=== PATIENT | female | born 1970 | race Caucasian/White ===

== ENCOUNTER 2017-09-07 20:29 | Emergency (ER) | payer BC, OTHER ==
[~2017-09-07] VITALS: Ht 154.9 cm; Wt 69.4 kg
--- NOTE | 2017-09-07 20:39 | ED.ADGEN ---
Adult General Chief Complaint Chief Complaint ".. The screen door caught my Lt heel.. ".. and ripped it open..." HPI HPI Patient is a 46 year old female who presents with above hx and complaints of 8 cm laceration area of Lt Achilles . Pt. has exposure to the Achilles . Has not cut the tendon. Pt. denies any hx of immunosuppression. No travel. Is exposed to children. Pt. does not remember her last tetanus. Distal neurovascular intact. Flap of degloved skin is avascular in the distal 1/2 fo the flap. Pt. does smoke. Review of Systems Review of Systems Constitutional: Denies fever or chills [] Eyes: Denies change in visual acuity, redness, or eye pain [] HENT: Denies nasal congestion or sore throat [] Respiratory: Denies cough or shortness of breath [] Cardiovascular: No additional information not addressed in HPI [] GI: Denies abdominal pain, nausea, vomiting, bloody stools or diarrhea [] : Denies dysuria or hematuria [] Musculoskeletal: Denies back pain or joint pain [] Integument: Denies rash or skin lesions [] complaints of pain and laceration Achilles tendon area. Neurologic: Denies headache, focal weakness or sensory changes [] Endocrine: Denies polyuria or polydipsia [] All other systems were reviewed and found to be within normal limits, except as documented in this note. Family History Family History Non-contributory Current Medications Current Medications Current Medications Medications (Trade) Dose Ordered Sig/Zen Start Time Stop Time Status Last Admin Dose Admin Bupivacaine HCl (Sensorcaine Mpf 0.5%) 30 ml 1X ONCE 09/07/17 21:15 09/07/17 21:16 DC Bupivacaine HCl (Sensorcaine Pf 0.75%) 10 ml ONCE ONCE 09/07/17 21:15 09/07/17 21:16 DC 09/07/17 21:38 10 ML Bupivacaine HCl (Sensorcaine-Mpf 0.25%) 10 ml ONCE ONCE 09/07/17 21:15 09/07/17 21:16 DC 09/07/17 21:38 10 ML Ceftriaxone Sodium (Rocephin Im) 1 gm 1X ONCE 09/07/17 21:15 09/07/17 21:16 DC 09/07/17 21:40 1 GM Lidocaine HCl 20 ml STK-MED ONCE 09/07/17 21:06 09/07/17 21:07 DC Oxycodone/ Acetaminophen (Percocet 5/325) 1 tab 1X ONCE 09/07/17 21:15 09/07/17 21:16 DC 09/07/17 21:39 1 TAB Tetanus/ Diphtheria Toxoids Adsorbed (Tenivac Vial) 0.5 ml ONCE ONCE 09/07/17 22:00 09/07/17 22:01 DC 09/07/17 21:51 0.5 ML Allergies Allergies Allergies Coded Allergies Type Severity Reaction Last Updated Verified Penicillins Allergy Intermediate 09/07/17 Yes Physical Exam Physical Exam Constitutional: in acute distress, non-toxic appearance. [] HENT: Normocephalic, atraumatic, bilateral external ears normal, oropharynx moist, no oral exudates, nose normal. [] Eyes: PERRLA, EOMI, conjunctiva normal, no discharge. [] Neck: Normal range of motion, no tenderness, supple, no stridor. [] Cardiovascular:Heart rate regular rhythm, no murmur [] Lungs & Thorax: Bilateral breath sounds equal at apex with scattered wheezies on auscultation [] Abdomen: Bowel sounds normal, soft, no tenderness, no masses, no pulsatile masses. [] Skin: Warm, dry, no erythema, no rash. [] Back: No tenderness, no CVA tenderness. [] Extremities: No tenderness, no cyanosis, no clubbing, ROM intact, no edema. []- except findings in Lt heel laceration as per HPI Neurologic: Alert and oriented X 3, normal motor function, normal sensory function, no focal deficits noted. [] Psychologic: Affect normal, judgement normal, mood normal. [] Current Patient Data Vital Signs Vital Signs Date Time Temp Pulse Resp B/P (MAP) Pulse Ox O2 Delivery O2 Flow Rate FiO2 09/07/17 21:38 91 18 162/85 (110) 98 Room Air 09/07/17 21:08 98.1 EKG EKG [] Radiology/Procedures Radiology/Procedures [] Course & Med Decision Making Course & Med Decision Making Pertinent Labs and Imaging studies reviewed. (See chart for details) Procedure Note- Laceration repair- Laceration edge cleaned with Betadine. Injected edge of laceration. Re-irrigated laceration in ROM with Normal saline. Scrubbed laceration with gauze and saline.. Closed flap with 5 internal Vicryl sutures - 3-0. Then approximated edge of laceration with 3- 0 Vicryl x 4.- mattress sutures. Then closed laceration with 12 -x 4-0 Prolene. Bactracin applied with dressing. Keep dressing clean and dry. Polysporin 4 x day when dressing removed in 3 day or if removed sooner. White cotton socks only. Remove the Blue sutures in 10 days. May leave the black Vicryl sutures.. Tylenol and Ibuprofen for pain. Keflex 500 three times a day. Return if any concerns. Follow up with primary [] Final Impression Final Impression 1. Laceration Lt. Heel - 8 cm[] Dragmaricruz Disclaimer Dragon Disclaimer This electronic medical record was generated, in whole or in part, using a voice recognition dictation system. JACOB HAN MD Sep 07, 2017 20:39
[2017-09-07] MEDS ORDERED: CEPH-264 PO (20:47)
[2017-09-07] MEDS ORDERED: BUPIVACAINE PF 0.75% 10 ML VIAL ONE (21:06)
[2017-09-07] MEDS ORDERED: BUPIVACAINE MPF 0.25% 10 ML VIAL. ONE (21:06)
[2017-09-07] MEDS ORDERED: LIDOCAINE 2% 20 ML VIAL. ONE (21:06)
[2017-09-07] MEDS ORDERED: cefTRIAXone IM 1 GM VIAL IM ONE (21:15)
[2017-09-07] MEDS ORDERED: BUPIVACAINE MPF 0.25% 10 ML VIAL. IJ ONE (21:15)
[2017-09-07] MEDS ORDERED: BUPIVACAINE MPF 0.5% 30 ML VIAL. SQ ONE (21:15)
[2017-09-07] MEDS ORDERED: BUPIVACAINE PF 0.75% 10 ML VIAL IJ ONE (21:15)
[2017-09-07] MEDS ORDERED: LIDOCAINE 2% 20 ML VIAL. IJ ONE (21:15)
[2017-09-07] MEDS ORDERED: oxyCODONE/APAP 5/325 1 TAB TABLET PO ONE (21:15)
[2017-09-07 21:38] VITALS: BP 162/85
[2017-09-07] MEDS ORDERED: TETANUS AND DIPHTHERIA TOX/PF 0.5 ML VIAL. VAX IM ONE (22:00)
== END 2017-09-07 21:53 | disposition home or self-care (01) ==
LOC: ER 20:29
DX: S91.312A Laceration without foreign body, left foot, initial encounter (principal); Z88.0 Allergy status to penicillin; W23.0XXA Caught, crushed, jammed, or pinched between moving objects, initial encounter; Y93.89 Activity, other specified; Y99.8 Other external cause status; Y92.89 Other specified places as the place of occurrence of the external cause
CPT/HCPCS: 12004; 90471; 90714; 96372; 99284; J0696; J3490; J2001

== ENCOUNTER → 2020-01-13 | Outpatient (CLI) | payer BC ==
[~2020-01-13] MED LIST: CEPH-264 PO
--- NOTE | 2020-01-20 09:04 | RAD ---
EXAM: Bilateral digital screening mammogram with tomosynthesis. HISTORY: 49-year-old female presents for screening mammography. TECHNIQUE: Full-field digital craniocaudal and mediolateral oblique 2D and 3D tomosynthesis images of both breasts are obtained for evaluation. Computer aided detection was applied. COMPARISON: 06/20/2012 BREAST PARENCHYMAL DENSITY: Level D - Extremely dense. FINDINGS: There are circumscribed nodular densities within the 6:00 position of the left breast at mid depth and posterior depth which may be more conspicuous compared to the prior study due to differences in imaging technique. There are stable areas of nodularity within the medial right breast at mid depth. There is no suspicious calcification or architectural distortion. IMPRESSION: BI-RADS Category 0: Incomplete. Additional imaging needed. RECOMMENDATION: Further evaluation with a left breast sonogram is recommended to assess nodularity at the 6:00 position at mid and posterior depth, possibly more conspicuous compared to the prior study due to differences in technique. If your mammogram demonstrates that you have dense breast tissue, which could hide abnormalities, and if you have other risk factors for breast cancer that have been identified, you might benefit from supplemental screening tests that may be suggested by your ordering physician. Dense breast tissue, in and of itself, is a relatively common condition. This information is not provided to cause undue concern, but rather to raise your awareness and to promote discussion with your physician regarding the presence of other risk factors, in addition to dense breast tissue. A report of your mammography results will be sent to you and your physician. You should contact your physician if you have any questions or concerns regarding this report. Mammography is a sensitive method for finding small breast cancers, but it does not detect them all and is not a substitute for careful clinical examination. A negative mammogram does not negate a clinically suspicious finding and should not result in delay in biopsying a clinically suspicious abnormality. PQRS compliance statement - Patient information was entered into a reminder system with a target due date for the next mammogram. "Our facility is accredited by the [employer] Mammography [employer]." Electronically signed by: Anuradha Bliss MD (01/20/2020 9:01 AM) [id number]
== END ==
LOC: MAMMO 07:55
PROVIDERS: ATTEND Obstetrics & Gynecology
DX: Z12.31 Encounter for screening mammogram for malignant neoplasm of breast (principal)
CPT/HCPCS: 77063; 77067

== ENCOUNTER → 2020-01-27 | Outpatient (CLI) | payer BC ==
--- NOTE | 2020-01-27 17:48 | RAD ---
Examination: Limited left breast ultrasound. INDICATION: Screening recall for nodularity in the inferior left breast. COMPARISON: 06/20/2012, 01/05/2020 mammograms TECHNIQUE: Grayscale ultrasound imaging of the left breast along with color Doppler imaging was performed in the area of mammographic concern targeting the 6:00 position mid to posterior depth. FINDINGS: Targeted ultrasound left breast identified at the 5:30 o'clock position 5 cm from the nipple an oval parallel orientation hypoechoic 5 mm mass with low-level internal echoes, favored to represent a complicated cyst. Sonographic survey of the left axilla revealed no adenopathy. The retroareolar left breast was also unremarkable. The anterior third left breast revealed a 7 mm cyst at the 6:00 position 3 cm from the nipple. IMPRESSION: Probably benign complicated cyst at the right 5:30 o'clock position 5 cm from the nipple measuring 5 mm. Recommend six-month follow-up left breast ultrasound. BI-RADS Category 3 Probably benign findings Patient entered into reminder system with target due date for next mammogram.
== END ==
LOC: US 13:16
PROVIDERS: ATTEND Obstetrics & Gynecology
DX: N60.01 Solitary cyst of right breast (principal); N60.02 Solitary cyst of left breast
CPT/HCPCS: 76641

== ENCOUNTER → 2020-10-25 | Outpatient (CLI) | payer BC ==
--- NOTE | 2020-10-25 15:36 | CARD ---
MR#: [id number] Date of Study: 10/25/2020 Ordering Physician: GEOVANI SNIDER, Referring Physician: GEOVANI SNIDER, Tech: Hanane Tinajero, [facility] APPROVED REPORT EXAM: Two-dimensional and M-mode echocardiogram with Doppler and color Doppler. Other Information Quality : AverageHR: 65bpm INDICATION COPD Cardiac Disease: CAD RISK FACTORS Hypertension Hyperlipidemia Diabetes Smoking 2D DIMENSIONS Left Atrium(2D)3.7 (1.6-4.0cm)IVSd1.1 (0.7-1.1cm) Aortic Root(2D)2.8 (2.0-3.7cm)LVDd4.9 (3.9-5.9cm) LVOT Diameter1.8 (1.8-2.4cm)PWd1.1 (0.7-1.1cm) LVDs2.9 (2.5-4.0cm)FS (%) 40.0 % SV78.4 mlLVEF(%)70.5 (>50%) Aortic Valve AoV Peak Garcia.171.8cm/sAoV VTI39.3cm AO Peak GR.11.8mmHgLVOT Peak Garcia.142.2cm/s LVOT VTI 34.46cmAO Mean GR.6mmHg KETTY (VMAX)2.09ox1RHE (VTI)2.27cm2 Mitral Valve MV E Wfsmludh07.7cm/sMV DECEL [id number] MV A Xmquuxku24.9cm/sE/A Ratio1.2 Pulmonary Valve PV Peak Dxlimere45.6cm/sPV Peak Grad.4mmHg Tricuspid Valve TR P. Ptrlyysa986hh/sRAP GMADXYEU3mjMv TR Peak Gr.80myZxIVBC94paOh Pulmonary Vein S1 Vmmybxqi80.9cm/sD2 Zvmkpusg59.3cm/s LEFT VENTRICLE The left ventricle is normal size. There is mild concentric left ventricular hypertrophy. The left ve ntricular systolic function is normal. The Ejection Fraction is 55-60%. There is normal LV segmental wall motion. RIGHT VENTRICLE The right ventricle is normal size. There is normal right ventricular wall thickness. The right ventr icular systolic function is normal. ATRIA The left atrium size is normal. The right atrium size is normal. The interatrial septum is intact wit h no evidence for an atrial septal defect or patent foramen ovale as noted on 2-D or Doppler imaging. AORTIC VALVE The aortic valve is normal in structure and function. Doppler and Color Flow revealed no significant aortic regurgitation. There is no significant aortic valvular stenosis. Calculated aortic valve area is 2.4 cm2 with maximum pressure gradient of 12 mmHg and mean pressure gradient of 6 mmHg. MITRAL VALVE The mitral valve is normal in structure and function. There is no evidence of mitral valve prolapse. There is no mitral valve stenosis. Doppler and Color-flow revealed trace mitral regurgitation. TRICUSPID VALVE The tricuspid valve is normal in structure and function. Doppler and Color Flow revealed trace tricus pid regurgitation with an estimated PAP of 44 mmHg. There is no tricuspid valve stenosis. PULMONIC VALVE The pulmonic valve is not well visualized. Doppler and Color Flow revealed trace pulmonic valvular re gurgitation. GREAT VESSELS The aortic root is normal in size. The ascending aorta is normal in size. The IVC is normal in size a nd collapses >50% with inspiration. PERICARDIAL EFFUSION There is no evidence of significant pericardial effusion. Critical Notification Critical Value: No <Conclusion> The left ventricular systolic function is normal. The Ejection Fraction is 55-60%. Trace mitral regurgitation. Trace tricuspid regurgitation with an estimated PAP of 44 mmHg. There is no evidence of significant pericardial effusion. Signed by : Familia Correa, Electronically Approved : 10/25/2020 15:35:47
== END ==
LOC: ECHO 08:32
PROVIDERS: ATTEND Internal Medicine Cardiovascular Disease
DX: I51.7 Cardiomegaly (principal); I25.10 Atherosclerotic heart disease of native coronary artery without angina pectoris
CPT/HCPCS: 93306